=== PATIENT | male | born 1990 | race Two or more races ===

== ENCOUNTER 2018-03-24 04:09 | Emergency (ER) | payer OTHER, MEDICAID ==
[2018-03-24] MEDS: KETOROLAC 60 MG INJ IM (04:51)
== END 2018-03-24 05:13 | disposition home or self-care (01) ==
LOC: FTE 04:09
DX: M25.571 Pain in right ankle and joints of right foot (principal)
CPT/HCPCS: 96372; 99284-25

== ENCOUNTER 2018-09-22 08:43 | Emergency (ER) | payer OTHER ==
[2018-09-22] MEDS: KETOROLAC 60 MG INJ IM (09:37)
== END 2018-09-22 11:28 | disposition home or self-care (01) ==
LOC: FTE 08:43
DX: M25.562 Pain in left knee (principal)
CPT/HCPCS: 73562; 96372; 99284-25